=== PATIENT | female | born 1980 | race Two or more races ===

== ENCOUNTER → 2023-07-02 09:50 | Outpatient (REF) | payer OTHER, SELFPAY | LOC: MRI 3T 09:50 | PROVIDERS: ATTENDING PHYSICIAN Obstetrics & Gynecology; FAMILY PHYSICIAN Family Medicine | DX: N83.209 Unspecified ovarian cyst, unspecified side (principal); R93.89 Abnormal findings on diagnostic imaging of other specified body structures | CPT/HCPCS: 72197; A9575 ==

== ENCOUNTER → 2024-07-19 15:51 | Outpatient (REF) | payer OTHER, SELFPAY | LOC: HWRCS 15:51 | PROVIDERS: ATTENDING PHYSICIAN Nuclear Medicine Nuclear Cardiology; FAMILY PHYSICIAN Nurse Practitioner Adult Health | DX: R00.2 Palpitations (principal); Q21.10 Atrial septal defect, unspecified; Q26.3 Partial anomalous pulmonary venous connection | CPT/HCPCS: 93306 ==

== ENCOUNTER → 2024-08-04 09:32 | Outpatient (REF) | payer OTHER, SELFPAY | LOC: WDC 09:32 | PROVIDERS: ATTENDING PHYSICIAN Obstetrics & Gynecology; FAMILY PHYSICIAN Physician Assistant Medical | DX: N64.4 Mastodynia (principal) | CPT/HCPCS: 76642; 77062; 77066 ==

== ENCOUNTER → 2024-10-24 13:46 | Outpatient (REF) | payer OTHER, SELFPAY | LOC: HWRAD 13:46 | PROVIDERS: ATTENDING PHYSICIAN Family Medicine | DX: M25.562 Pain in left knee (principal) | CPT/HCPCS: 73564 ==

== ENCOUNTER → 2024-12-19 08:50 | Outpatient (REF) | payer OTHER, SELFPAY | LOC: HWRAD 08:50 | PROVIDERS: ATTENDING PHYSICIAN Physician Assistant Medical | DX: M54.2 Cervicalgia (principal) | CPT/HCPCS: 76536 ==

== ENCOUNTER → 2025-03-06 15:04 | Outpatient (REF) | payer OTHER, SELFPAY | LOC: RAD 15:04 | PROVIDERS: ATTENDING PHYSICIAN Physician Assistant Medical | DX: R10.9 Unspecified abdominal pain (principal) | CPT/HCPCS: 74177; Q9967 ==

== ENCOUNTER 2025-03-13 16:00 | Emergency (ER) | payer OTHER, SELFPAY ==
[2025-03-13 16:02] VITALS: BP 131/80
[2025-03-13 16:26] VITALS: BP 109/65
[2025-03-13 16:38] VITALS: BMI 23.9
--- NOTE | 2025-03-13 16:54 | ED.GENMED ---
History of Present Illness
General
Chief Complaint: Musculo-Skeletal Complaint
Source: patient
Exam Limitations: none
Time Seen by Provider: 03/13/25 16:25
History of Present Illness
History of Present Illness:
44-year-old female complaining of left scapular pain. Not truly pleuritic. No shortness of breath. Has had left shoulder pain for days. No trauma. Somewhat positional. No fever chills cough abdominal pain etc. History of ASD repair years ago
Past History
Past History
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
ED Past Surgical History: Cardiac (Open-heart surgery) and Gynecological (L ovarie removed)
Social History
Tobacco: Non-smoker
Alcohol: None
Personal:
Living: with family
Employment: Employed
Family History
Family History: Other (Father with prostate cancer)
Review of Systems
Review of Systems
All Other Systems: Not applicable
Respiratory: Denies cough
ABD/GI: Reports no symptoms
Phy Exam
Physical Exam
Physical Exam:
GENERAL: Alert and oriented in no apparent distress
EYE: Orbits normal.
NECK: Supple
CARDIAC: Regular rate and rhythm without any obvious murmurs.
LUNGS: Clear breath sounds,normal. Tenderness over the left medial scapula. Some mild increased pain with left shoulder movement. Good distal pulses and color.
ABDOMEN: Soft, without focal tenderness or distention
NEUROLOGICAL: Alert and oriented , grossly non-focal
SKIN: Warm and dry, no rash or lesion, no discoloration, skin intact.
MUSCULOSKELETAL: No edema,no deformity.Good color
PSYCH: Normal and appropriate interaction.
Course
Orders/Labs/Results
Orders:
Orders
03/13/25 16:04
Electrocardiogram (*1) Urgent
Reason for Study: Chest Pain
EKG- Treatment ONCE
03/13/25 16:53
IV Insert/Care/Rem.- Treatment PRN
Pulse Ox/cont/shift [RESP] Stat
Quantity: 1
03/13/25 16:54
Cardiac Monitoring- Treatment ONCE
Test Result ONCE
CR Chest - 2 Views Urgent
Comment:
Reason For Exam: Left scapular pain
03/13/25 16:59
Basic Metabolic Panel Urgent
Complete Blood Count/With Diff Urgent
D-Dimer Urgent
HCG, Serum Qualitative Screen Urgent
Troponin I Urgent
03/13/25 17:38
CT Chest PE Study Urgent
Comment:
Reason For Exam: Left scapular pain. Positive dimer
Abnormal Lab Results
03/13/25
16:59
WBC 4.7 L 10^3/uL
(4.8-10.8)
Hgb 11.9 L g/dL
(12.0-16.0)
MCV 78.4 L fL
(81.0-99.0)
MCH 24.9 L pg
(27.0-31.0)
MCHC 31.8 L g/dL
(33.0-37.0)
Absolute Lymphs (auto) 1.1 L 10^3/uL
(1.2-3.4)
D-Dimer 0.70 H ug/mlFEU
(0.00-0.50)
Glucose 181 H mg/dl
(70-99)
03/13/25 16:59
03/13/25 16:59
Vital Signs
Initial and Last Documented VS:
Initial Vital Signs
Temp Pulse Resp BP Pulse Ox
98.2 F 68 16 131/80 100
03/13/25 16:02 03/13/25 16:02 03/13/25 16:02 03/13/25 16:02 03/13/25 16:02
Last Documented Vital Signs
Temp Pulse Resp BP Pulse Ox
98.2 F 63 17 115/78 100
03/13/25 16:02 03/13/25 17:45 03/13/25 17:45 03/13/25 17:00 03/13/25 17:45
MDM/Problems Addressed
Differential Diagnosis Includes:
No history of ischemic heart disease. Very low suspicion for acute coronary syndrome. EKG without changes. Atypical symptoms. Troponin normal after 8 hours of symptoms. D-dimer is mildly positive. Relatively low suspicion. But given D-dimer
we will do chest CT.
*Radiology
Radiology exam reviewed: radiology read reviewed (Negative CTA)
*Pulse Oximetry
SaO2: 100
Oxygen Mode of Delivery: Room air
Patient hypoxic: no
*EKG
Interpreted by ED Provider?: Yes
Interpretation: abnormal
Comparison EKG: no changes
Heart Rate: 66
Rate: normal
Rhythm: sinus
[place]: normal axis
Interval: normal interval
QRS Pattern: normal QRS
Ischemia: non-specific ST changes
*Critical Care Note
Total Time (30-74mins, 75-104mins- exclusive of procedures): Not Applicable
Data Reviewed
Review of Other/Old Records Reveals: Labs, Records and Testing
Update Note
Update Note:
Patient is remained stable and nontoxic. Patient had prolonged symptoms for about 8 hours with negative troponin and EKG and no history of coronary artery disease. Feel repeat troponin testing not necessary. Very localized medial scapular pain.
Possibly musculoskeletal. Symptomatic treatment and follow-up
ED Attending Note
-
Portions of this chart may have been created with voice recognition software.� Occasional wrong word or��sound alike� substitutions may have occurred due to the inherent limitations of voice recognition software.
Discharge Plan
Departure
Patient Disposition: Home (Routine Discharge)
Date of Disposition: 03/13/25
Time of Disposition: 18:50
Patient with high blood pressure during this ER visit?: No
Discharge Problem:
Left upper back pain, Mild hyperglycemia
Instructions: Upper Back Pain ED, Chest pain (DC), Chest Pain DCA Follow Up
Prescriptions:
No Action
cholecalciferol (vitamin D3) 1,000 UNITS tablet
1,000 units PO DAILY
ibuprofen 400 MG tablet
400 mg PO Q6HPRN PRN (Reason: pain, take with food) Qty: 30 0RF
Referrals:
Mary Anne Kasper PA-C [Family Provider, Family Practice] - Follow up in 2-3 days
Activity Restrictions/Additional Instructions:
Your blood sugar is mildly elevated and you should have a repeat fasting blood sugar
Interventions
Interventions:
*Risk Screen - Suicide Last Done: 03/13/25 16:05
*General Assessment Last Done: 03/13/25 16:30
*Neglect/Abuse Screening Last Done: 03/13/25 16:05
*ED- Fall Risk Assessment Last Done: 03/13/25 16:05
*ED COVID-19 Vaccine History Last Done: 03/13/25 16:30
*ED Influenza Vaccine History Last Done: 03/13/25 16:30
*Nursing Disposition Last Done: 03/13/25 18:58
ED-Musculoskeletal Assessment Last Done: 03/13/25 16:24
Discharge Date and Time
Discharge Date/Time: 03/13/25 19:40
Print Language: HUNGARIAN
[2025-03-13 17:00] VITALS: BP 115/78
[2025-03-13 17:17] LABS: Hematocrit 37.4 % (37.0-47.0); Hemoglobin 11.9 g/dL (12.0-16.0); Mean Corp Hgb Conc. 31.8 g/dL (33.0-37.0); Mean Corpuscular Volume 78.4 fL (81.0-99.0); Nucleated Red Blood Cells % 0 %; Platelet Count 263 10^3/uL (130-400); Red Cell Dist. Width 13.9 % (11.5-14.5)
[2025-03-13 17:31] LABS: HCG, Serum Qualitative Screen Negative
[2025-03-13 17:34] LABS: D-Dimer 0.70 ug/mlFEU (0.00-0.50)
[2025-03-13 17:37] LABS: Blood Urea Nitrogen 9 mg/dl (7-17); Calcium 8.8 mg/dl (8.4-10.2); Carbon Dioxide 27 mmol/L (22-30); Chloride 105 mmol/L (98-107); Estimated Creatinine Clearance 101 ml/min; Glucose 181 mg/dl (70-99); Potassium 3.9 mmol/L (3.5-5.1); Sodium 137 mmol/L (135-145); eGFR > 60.00
[2025-03-13 17:47] LABS: Troponin I < 0.012 ng/ml
== END 2025-03-13 19:40 | disposition home or self-care (01) ==
LOC: EMR 16:00
PROVIDERS: EMERGENCY PHYSICIAN Emergency Medicine; FAMILY PHYSICIAN Physician Assistant Medical
DX: M54.6 Pain in thoracic spine (principal); R73.9 Hyperglycemia, unspecified; Z87.74 Personal history of (corrected) congenital malformations of heart and circulatory system
CPT/HCPCS: 99285; 71046; 71275; 80048; 84484; 84703; 85025; 85379; 93005; Q9967

== ENCOUNTER → 2025-04-04 13:40 | Outpatient (REF) | payer OTHER, SELFPAY | LOC: HWRAD 13:40 | PROVIDERS: ATTENDING PHYSICIAN Obstetrics & Gynecology; FAMILY PHYSICIAN Physician Assistant Medical | DX: N83.201 Unspecified ovarian cyst, right side (principal) | CPT/HCPCS: 76830; 76856 ==

== ENCOUNTER 2025-04-22 23:03 | Emergency (ER) | payer OTHER, SELFPAY ==
[2025-04-22 23:09] VITALS: BP 116/66
[2025-04-22 23:32] VITALS: BMI 24.1
--- NOTE | 2025-04-22 23:54 | ED.GENMED ---
History of Present Illness
General
Chief Complaint: Back Pain
Source: patient
Exam Limitations: none
Time Seen by Provider: 04/22/25 23:48
Nursing documentation reviewed up to this point in time: agreed with
History of Present Illness
History of Present Illness:
Note:
CHIEF COMPLAINT(S)
Lower back pain radiating to the buttocks and left thigh.
HISTORY OF PRESENT ILLNESS
The patient is a 45-year-old female presents to the ER today experiencing low back pain that began after moving some boxes a few days ago. Initially, the pain was mild but progressively worsened over the subsequent days. By Wednesday, the pain
significantly intensified, becoming severe and impacting the patients ability to walk or lay comfortably. The patient reports being unable to sleep for three days due to discomfort. Pain primarily affects the lower back and extends to the left
buttock and upper thigh but does not radiate to the foot. The patient describes the pain as sharp and debilitating, requiring external support for ambulation. Sensation in the legs is primarily unchanged. She denies radiation of the pain to the
abdomen. She denies nausea or vomiting. She denies any fevers or chills. She denies any genital paresthesias, urinary or fecal incontinence. She denies any blood in the urine. Pain is aggravated by movement and not alleviated by minor position
adjustments. She denies any significant trauma, denies any recent falls.
PHYSICAL EXAM
General: Alert, no acute distress.
Skin: Warm, dry.
Head: Normocephalic, atraumatic.
Neck: Supple, trachea midline.
Eye, Ears, Nose, Mouth, and Throat: Oral mucosa moist.
Cardiovascular: Normal peripheral perfusion, no edema.
Respiratory: Respirations are non-labored.
Gastrointestinal: Abdomen nondistended, non-tender to palpation.
Back: Tenderness in the lower back region with limited range of motion due to pain.
Musculoskeletal: Normal gait. No midline spinal tenderness. Mild paralumbar tenderness noted. No CVA tenderness. Full range of motion of bilateral lower extremities.
Neurological: Alert and oriented to person, place, time, and situation. CN II-XII intact, no focal neurologic deficits.
Psychiatric: Cooperative, appropriate mood & affect.
PLAN
1. Administer a ketorolac (Toradol) injection for immediate anti-inflammatory relief.
2. Prescribe either prednisone or a higher dose of ibuprofen for longer-term inflammation control, pending patients preference after imaging.
3. Refer the patient for an urgent MRI as an outpatient to further evaluate the cause of symptoms.
4. Provide a muscle relaxant for symptom management at home.
5. Arrange for orthopedic consultation for further evaluation and management, including potential MRI approval.
6. Educate patient on proper lifting techniques and ergonomics to prevent future injury.
DIFFERENTIAL DIAGNOSIS
The Differential Diagnosis includes, in no particular order and is not limited to:
1. Lumbar Strain or Sprain
2. Sciatica
3. Herniated Disc
4. Sacroiliitis
5. Lumbar Radiculopathy
6. Facet Joint Syndrome
7. Spinal Stenosis
8. Renal Pathology (e.g., kidney stone, pyelonephritis)
9. Musculoskeletal Injury
10. Osteoarthritis of the Spine
UPDATE
Patient reports that the muscle relaxant and Toradol did help her symptoms, she reports that her gait improved after she was given these medications
CHART REVIEW
Reviewed ER physician documentation from 03/13/2025 patient seen for left upper back pain, had cardiac and PE workup which was negative, thought to be musculoskeletal in etiology
She did have a ASD repair in the past
MDM/DISPOSITION
45-year-old female presents the ER today with concerns of 1 week of low back pain radiating to the left thigh and buttocks following lifting heavy boxes. Pain is worse with movement. No associated fevers or chills, urinary fecal incontinence,
saddle paresthesias. On physical exam, she is well-appearing, in no acute distress, has a normal gait. She has no midline spinal tenderness. She is neurovascularly intact. Patient is requesting MRI at this time. Did discuss this is indicated
for neurologic emergencies. Did discuss in follow-up with orthopedist for potential MRI in the future after conservative management first. I did offer x-ray to rule out bony abnormalities however patient was declined this at this time. I think
this is reasonable. Patient did find some relief dose of IM Toradol and dose of muscle relaxants. Suspect back sprain versus sciatica. Will initiate steroid course. Follow-up with PCP. Discussed strict return precautions. Patient stable for
discharge.
Past History
Past History
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
ED Past Surgical History: Cardiac (Open-heart surgery) and Gynecological (L ovarie removed)
Social History
Tobacco: Non-smoker
Alcohol: None
Personal:
Living: with family
Employment: Employed
Family History
Family History: Other (Father with prostate cancer)
Review of Systems
Review of Systems
All Other Systems: ROS reviewed and negative except as documented in HPI and ROS
Phy Exam
Physical Exam
Physical Exam:
see hpi
Course
Orders/Labs/Results
Orders:
Orders
04/23/25 00:20
Ketorolac [Toradol] 30 mg IM NOW STA
04/23/25 00:25
Cyclobenzaprine HCl [Flexeril] 10 mg PO NOW STA
04/23/25 01:20
Acetaminophen [Tylenol] 1,000 mg PO NOW STA
Vital Signs
Initial and Last Documented VS:
Initial Vital Signs
Temp Pulse Resp BP Pulse Ox
97.8 F 68 22 116/66 100
04/22/25 23:09 04/22/25 23:09 04/22/25 23:09 04/22/25 23:09 04/22/25 23:09
Last Documented Vital Signs
Temp Pulse Resp BP Pulse Ox
97.8 F 68 22 116/66 100
04/22/25 23:09 04/22/25 23:09 04/22/25 23:09 04/22/25 23:09 04/22/25 23:55
*Pulse Oximetry
SaO2: 100
Oxygen Mode of Delivery: Room air
Patient hypoxic: no
*Critical Care Note
Total Time (30-74mins, 75-104mins- exclusive of procedures): Not Applicable
ED Attending Note
-
Portions of this chart may have been created with voice recognition software.� Occasional wrong word or��sound alike� substitutions may have occurred due to the inherent limitations of voice recognition software.
Discharge Plan
Departure
Patient Disposition: Home (Routine Discharge)
Date of Disposition: 04/23/25
Time of Disposition: 01:11
Patient with high blood pressure during this ER visit?: No
Condition: Good
Discharge Problem:
Low back pain
Instructions: Low Back Pain (DC), Radiculopathy (DC), BLOOD PRESSURE
Prescriptions:
New
cyclobenzaprine 10 mg tablet
10 mg PO HS PRN (Reason: muscle spasm) Qty: 10 0RF
prednisone 20 mg tablet
40 mg PO DAILY 5 Days Qty: 10 0RF
No Action
cholecalciferol (vitamin D3) 1,000 UNITS tablet
1,000 units PO DAILY
ibuprofen 400 MG tablet
400 mg PO Q6HPRN PRN (Reason: pain, take with food) Qty: 30 0RF
Referrals:
Nick Mcknight MD [Active, Orthopedics] - Call in 1-3 days for appt
Mary Anne Kasper PA-C [Family Provider, Family Practice]
Activity Restrictions/Additional Instructions:
Prednisone has been sent to your pharmacy. Please take 40 mg once daily for 5 days. Please call attached number to schedule follow-up appoint with orthopedist. Please follow-up with your PCP.
PLEASE RETURN TO THE ER SHOULD YOU DEVELOP URINARY OR FECAL INCONTINENCE, LOSS OF SENSATION OR NUMBNESS OR TINGLING IN THE GENITAL REGION, INABILITY TO AMBULATE, FEVERS OR CHILLS, ABDOMINAL PAIN, NAUSEA OR VOMITING, CHEST PAIN, SHORTNESS OF BREATH,
OR ANY OTHER SIGNS OR SYMPTOMS WORRISOME TO YOU.
Please avoid taking ibuprofen or NSAIDs while taking the steroid.
Interventions
Interventions:
*Risk Screen - Suicide Last Done: 04/22/25 23:09
*General Assessment Last Done: 04/22/25 23:31
*Neglect/Abuse Screening Last Done: 04/22/25 23:09
*ED- Fall Risk Assessment Last Done: 04/22/25 23:31
*ED COVID-19 Vaccine History Last Done: 04/22/25 23:31
*ED Influenza Vaccine History Last Done: 04/22/25 23:31
*Nursing Disposition Last Done: 04/23/25 01:23
ED-Musculoskeletal Assessment Last Done: 04/22/25 23:30
Discharge Date and Time
Discharge Date/Time: 04/23/25 01:24
Print Language: VIET[place]ESE
[2025-04-23] MEDS: TORADOL 30 MG IM (00:25)
[2025-04-23] MEDS: FLEXERIL 10 MG PO (00:29)
[2025-04-23] MEDS: TYLENOL 1000 MG PO (01:21)
== END 2025-04-23 01:24 | disposition home or self-care (01) ==
LOC: EMR 23:03
PROVIDERS: EMERGENCY PHYSICIAN Emergency Medicine; FAMILY PHYSICIAN Physician Assistant Medical
DX: M54.50 Low back pain, unspecified (principal)
CPT/HCPCS: 99284; 96372

== ENCOUNTER 2025-05-09 07:22 | Outpatient (RCR) | payer OTHER, SELFPAY | END 2025-05-09 23:59 | disposition home or self-care (01) | LOC: RPT 07:22 | PROVIDERS: ATTENDING PHYSICIAN Family Medicine; FAMILY PHYSICIAN Physician Assistant Medical | DX: M54.16 Radiculopathy, lumbar region (principal); Z73.6 Limitation of activities due to disability; M79.605 Pain in left leg; R26.89 Other abnormalities of gait and mobility | CPT/HCPCS: 97110; 97112; 97140; 97163 ==